=== PATIENT | female | born 1960 | race Caucasian/White ===

== ENCOUNTER 2022-03-28 00:02 | Emergency (ER) | payer MEDICARE ==
[2022-03-28] MEDS: Sodium Chloride 0.9% 10 ML Syringe FLUSH PRN (00:45)
[2022-03-28 01:16] VITALS: BP 170/90; PULSE 85
[2022-03-28 01:16] LABS: ANION GAP 12.6 mmol/L (5-15); CHLORIDE,CL 103 mmol/L (98-107); SODIUM,NA 139 mmol/L (136-145)
[2022-03-28 01:17] LABS: ESTIMATED GFR 74 mL/min (>=60)
[2022-03-28] MEDS: HYDROmorphone 1 MG/ML Syringe ONE (02:10)
[2022-03-28] MEDS: HYDROmorphone 1 MG/ML Syringe IVPUSH ONE (02:12)
[2022-03-28] MEDS: HYDROmorphone 1 MG/ML Syringe IM ONE (02:12)
== END 2022-03-28 02:57 | disposition home or self-care (01) ==
LOC: KA.ED 00:05
DX: M25.561 Pain in right knee (principal); M54.50 Low back pain, unspecified; M25.551 Pain in right hip; E10.9 Type 1 diabetes mellitus without complications; M19.90 Unspecified osteoarthritis, unspecified site; E78.00 Pure hypercholesterolemia, unspecified; I10 Essential (primary) hypertension; E03.9 Hypothyroidism, unspecified; E11.40 Type 2 diabetes mellitus with diabetic neuropathy, unspecified; Z86.73 Personal history of transient ischemic attack (TIA), and cerebral infarction without residual deficits; Z79.02 Long term (current) use of antithrombotics/antiplatelets; Z79.4 Long term (current) use of insulin; Z79.899 Other long term (current) drug therapy
CPT/HCPCS: 36415; 72100; 73560-RT; 80053; 85025; 96374; 99284; 99284-25; J1170; J3490

== ENCOUNTER 2022-05-06 10:58 | Emergency (ER) | payer MEDICARE ==
[2022-05-06] MEDS ORDERED: Sodium Chloride 0.9% 10 ML Syringe FLUSH PRN ×2 (11:06→11:52)
[2022-05-06] MEDS ORDERED: Sodium Chloride 0.9% 1,000 ML IV ONE ×2 (11:39→11:53)
[2022-05-06] MEDS ORDERED: Sodium Chloride 0.9% 1,000 ML ONE (11:40)
[2022-05-06 11:48] LABS: ANION GAP 14.9 mmol/L (5-15); CHLORIDE,CL 99 mmol/L (98-107); SODIUM,NA 134 mmol/L (136-145)
[2022-05-06] MEDS ORDERED: cefTRIAXone 2 GM Vial IVPUSH ONE (11:49)
[2022-05-06 12:17] LABS: ESTIMATED GFR 76 mL/min (>=60)
== END 2022-05-06 14:30 | disposition home or self-care (01) ==
LOC: KA.ED 10:58
DX: E11.621 Type 2 diabetes mellitus with foot ulcer (principal); L97.519 Non-pressure chronic ulcer of other part of right foot with unspecified severity; R00.1 Bradycardia, unspecified; R42 Dizziness and giddiness; E78.00 Pure hypercholesterolemia, unspecified; I10 Essential (primary) hypertension; E03.9 Hypothyroidism, unspecified; Z87.891 Personal history of nicotine dependence; Z86.73 Personal history of transient ischemic attack (TIA), and cerebral infarction without residual deficits; Z86.16 Personal history of COVID-19; Z28.310 Unvaccinated for COVID-19; Z79.02 Long term (current) use of antithrombotics/antiplatelets; Z79.4 Long term (current) use of insulin; Z79.899 Other long term (current) drug therapy; Z20.822 Contact with and (suspected) exposure to COVID-19
CPT/HCPCS: 36415; 70450; 71045; 80053; 81003; 83605; 84484; 85025; 85379; 85730; 93005; 93010; 96361; 96374; 99284; 99285-25; J0696; J7030; U0002

== ENCOUNTER 2022-06-04 21:24 | Inpatient (IN) | payer MEDICARE ==
[2022-06-04] MEDS ORDERED: Sodium Chloride 0.9% 10 ML Syringe FLUSH PRN (21:27)
[2022-06-04] MEDS ORDERED: Sodium Chloride 0.9% 1,000 ML IV ONE (21:31)
[2022-06-04 22:17] LABS: PTT,PARTIAL THROMBOPLSTIN TIME 25.6 SEC (22.8-31.4)
[2022-06-04] MEDS ORDERED: cefTRIAXone 2 GM Vial IVPUSH ONE (22:50)
[2022-06-04 22:59] LABS: BARBITURATE SCREEN,URINE NEGATIVE (NEGATIVE); BENZODIAZEPINES SCREEN,URINE NEGATIVE (NEGATIVE); TCA SCREEN,URINE NEGATIVE (NEGATIVE); THC SCREEN,URINE 50 NG/ML NEGATIVE (NEGATIVE)
[2022-06-04] MEDS ORDERED: Sodium Chloride 0.9% 1,000 ML IV SCH (23:00)
[2022-06-05] MEDS ORDERED: Labetalol 100 MG/20 ML MDV IVPUSH ONE (00:21)
[2022-06-05] MEDS ORDERED: Labetalol 100 MG/20 ML MDV IVPUSH PRN (00:27)
[2022-06-05] MEDS ORDERED: Levothyroxine 75 MCG Tab ONE (04:59)
[2022-06-05] MEDS ORDERED: Levothyroxine 100 MCG Tab ONE (05:00)
[2022-06-05] MEDS: Levothyroxine 75 MCG Tab PO SCH ×2 (05:14→06:29)
[2022-06-05] MEDS: Levothyroxine 100 MCG Tab PO SCH ×2 (05:14→06:29)
[2022-06-05] MEDS: Insuln Aspart Prot/Insulin Aspart 100 Units/ML 3 ML FlexPen SUBCUT SCH ×2 (07:50→13:26)
[2022-06-05 08:11] LABS: ANION GAP 9.1 mmol/L (5-15)
[2022-06-05] MEDS ORDERED: atorvaSTATin 40 MG Tab PO SCH (09:00)
[2022-06-05] MEDS ORDERED: Insulin Glargine,Hum.Rec.Anlog 100 UNIT/ML 3 ML Pen SUBCUT SCH (09:00)
[2022-06-05] MEDS ORDERED: Clopidogrel 75 MG Tab PO SCH (09:00)
[2022-06-05] MEDS ORDERED: DULoxetine 30 MG Cap PO SCH (09:00)
[2022-06-05] MEDS ORDERED: Non-Formulary Medication 1 Each (Bupropion 100 MG Tablet) PO SCH (09:00)
[2022-06-05] MEDS ORDERED: Lisinopril 20 MG Tab PO SCH (10:40)
[2022-06-05] MEDS ORDERED: Hydrochlorothiazide 25 MG Tab PO SCH (10:40)
[2022-06-05] MEDS ORDERED: Propranolol 80 MG Cap.ER PO SCH (10:41)
[2022-06-06] MEDS ORDERED: Hydrochlorothiazide 25 MG Tab PO SCH (09:00)
[2022-06-06] MEDS ORDERED: Lisinopril 20 MG Tab PO SCH (09:00)
[2022-06-06] MEDS ORDERED: Propranolol 80 MG Cap.ER PO SCH (09:00)
== END 2022-06-05 14:30 | disposition home or self-care (01) | DRG 69 ==
LOC: KA.ED 21:24 → KA.MS 23:43
PROVIDERS: ADMIT Physician Assistant Medical; ATTEND Nurse Practitioner Family
DX: G45.9 Transient cerebral ischemic attack, unspecified (principal); R47.81 Slurred speech; I95.9 Hypotension, unspecified; E05.00 Thyrotoxicosis with diffuse goiter without thyrotoxic crisis or storm; F32.A Depression, unspecified; G47.00 Insomnia, unspecified; F41.9 Anxiety disorder, unspecified; R74.02 Elevation of levels of lactic acid dehydrogenase [LDH]; G62.9 Polyneuropathy, unspecified; H54.7 Unspecified visual loss; E78.00 Pure hypercholesterolemia, unspecified; E11.42 Type 2 diabetes mellitus with diabetic polyneuropathy; I10 Essential (primary) hypertension; Z86.73 Personal history of transient ischemic attack (TIA), and cerebral infarction without residual deficits; Z97.3 Presence of spectacles and contact lenses; Z87.81 Personal history of (healed) traumatic fracture; E11.40 Type 2 diabetes mellitus with diabetic neuropathy, unspecified; Z86.16 Personal history of COVID-19; Z90.89 Acquired absence of other organs; Z98.890 Other specified postprocedural states; Z87.891 Personal history of nicotine dependence; E03.9 Hypothyroidism, unspecified; Z79.02 Long term (current) use of antithrombotics/antiplatelets; Z79.890 Hormone replacement therapy; Z79.4 Long term (current) use of insulin; Z79.899 Other long term (current) drug therapy; Z20.822 Contact with and (suspected) exposure to COVID-19
CPT/HCPCS: 36415; 51701; 70450; 71045; 73000-RT; 80053; 80305-QW; 80307; 81001; 82947; 83605; 84484; 85025; 85610; 85730; 87040; 93010; 96360; 96361; 99284; 99285-25; A9270-GY; J0696; J1815-GY; J7030; U0002

== ENCOUNTER 2022-08-27 20:00 | Observation (INO) | payer MEDICARE ==
[2022-08-27] MEDS ORDERED: Sodium Chloride 0.9% 1,000 ML IV SCH (20:35)
[2022-08-27] MEDS ORDERED: Sodium Chloride 0.9% 1,000 ML ONE (20:35)
[2022-08-27 20:45] LABS: ANION GAP 11.1 mmol/L (5-15); CHLORIDE,CL 97 mmol/L (98-107); SODIUM,NA 131 mmol/L (136-145)
[2022-08-27 20:53] LABS: ESTIMATED GFR 100 mL/min (>=60)
[2022-08-27] MEDS ORDERED: Insulin Glargine,Hum.Rec.Anlog 100 UNIT/ML 3 ML Pen SUBCUT ONE (20:59)
[2022-08-27] MEDS ORDERED: Insulin Lispro 100 Unit/ML 3 ML KwikPen SUBCUT ONE (21:11)
[2022-08-27] MEDS ORDERED: Glucagon,Human Recombinant 1 MG Vial IM PRN (21:11)
[2022-08-27] MEDS ORDERED: 50% Dextrose in Water 50 ML Syringe IVPUSH PRN (21:11)
[2022-08-27 21:12] LABS: PTT,PARTIAL THROMBOPLSTIN TIME 24.6 SEC (22.8-31.4)
[2022-08-27] MEDS ORDERED: Insulin Lispro Protamine/Lispro 75-25 100 Units/ML 3 ML KwikPen SUBCUT SCH (23:00)
[2022-08-27] MEDS ORDERED: atorvaSTATin 40 MG Tab PO SCH (23:12)
[2022-08-27] MEDS ORDERED: Clopidogrel 75 MG Tab PO SCH (23:15)
[2022-08-27] MEDS ORDERED: Propranolol 80 MG Cap.ER PO SCH (23:15)
[2022-08-27] MEDS: Gabapentin 300 MG Cap PO SCH (23:41)
[2022-08-28] MEDS: Gabapentin 300 MG Cap PO SCH ×3 (02:47→11:18)
[2022-08-28] MEDS: Insulin Lispro 100 Unit/ML 3 ML KwikPen SUBCUT SCH ×3 (02:53→11:20)
[2022-08-28] MEDS ORDERED: Levothyroxine 75 MCG Tab PO SCH (07:30)
[2022-08-28] MEDS ORDERED: Levothyroxine 100 MCG Tab PO SCH (07:30)
[2022-08-28] MEDS ORDERED: Iopamidol 755 Mg/ML 75 ML Bottle IVPUSH ONE (10:15)
[2022-08-28] MEDS ORDERED: Sodium Chloride 0.9% 50 ML IV SCH (10:15)
== END 2022-08-28 11:50 | disposition home or self-care (01) ==
LOC: KA.ED 20:00 → KA.MS 21:46 → UNDOADMOB 22:27 → KA.MS 22:27 → UNDODISOB 08-28 11:50
PROVIDERS: ADMIT Physician Assistant; ATTEND Nurse Practitioner Family
DX: R29.818 Other symptoms and signs involving the nervous system (principal); E78.00 Pure hypercholesterolemia, unspecified; E11.40 Type 2 diabetes mellitus with diabetic neuropathy, unspecified; F41.9 Anxiety disorder, unspecified; F32.A Depression, unspecified; I10 Essential (primary) hypertension; Z79.899 Other long term (current) drug therapy; Z79.890 Hormone replacement therapy; Z79.4 Long term (current) use of insulin; Z86.16 Personal history of COVID-19; Z87.891 Personal history of nicotine dependence
CPT/HCPCS: 36415; 70450; 80053; 81001; 82947; 83880; 84484; 85025; 85610; 85730; 93010; 99285; A9270-GY; G0378; J1815-GY; J7030

== ENCOUNTER 2022-10-15 15:35 | Observation (INO) | payer MEDICARE ==
[2022-10-15] MEDS ORDERED: Sodium Chloride 0.9% 10 ML Syringe FLUSH PRN ×2 (15:56→16:09)
[2022-10-15] MEDS ORDERED: Sodium Chloride 0.9% 1,000 ML ONE (16:03)
[2022-10-15] MEDS ORDERED: Sodium Chloride 0.9% 1,000 ML IV ONE (16:10)
[2022-10-15 16:52] LABS: ANION GAP 8.1 mmol/L (5-15); CHLORIDE,CL 104 mmol/L (98-107); SODIUM,NA 137 mmol/L (136-145)
[2022-10-15 16:53] LABS: ESTIMATED GFR 78 mL/min (>=60)
[2022-10-15] MEDS ORDERED: Sodium Chloride 0.9% 1,000 ML IV SCH (18:00)
[2022-10-15] MEDS ORDERED: BUPROPION 100 MG PO SCH (21:00)
[2022-10-15] MEDS: Gabapentin 300 MG Cap PO SCH (22:28)
[2022-10-15] MEDS: busPIRone 10 MG Tab PO SCH (22:28)
[2022-10-15] MEDS: Insulin Glargine,Hum.Rec.Anlog 100 UNIT/ML 3 ML Pen SUBCUT SCH (22:29)
[2022-10-16] MEDS: Levothyroxine 100 MCG Tab PO SCH ×2 (06:01→06:30)
[2022-10-16] MEDS: Gabapentin 300 MG Cap PO SCH ×2 (06:02→09:44)
[2022-10-16 07:30] LABS: ANION GAP 11.3 mmol/L (5-15)
[2022-10-16] MEDS ORDERED: Insuln Aspart Prot/Insulin Aspart 100 Units/ML 3 ML FlexPen SUBCUT SCH (08:00)
[2022-10-16] MEDS: Insulin Glargine,Hum.Rec.Anlog 100 UNIT/ML 3 ML Pen SUBCUT SCH (08:31)
[2022-10-16] MEDS: busPIRone 10 MG Tab PO SCH (08:33)
[2022-10-16] MEDS ORDERED: atorvaSTATin 40 MG Tab PO SCH (09:00)
[2022-10-16] MEDS ORDERED: Clopidogrel 75 MG Tab PO SCH (09:00)
[2022-10-16] MEDS ORDERED: Propranolol 80 MG Cap.ER PO SCH (09:00)
[2022-10-16] MEDS ORDERED: DULoxetine 30 MG Cap PO SCH (09:00)
[2022-10-16] MEDS ORDERED: Hydrochlorothiazide 25 MG Tab PO SCH (09:00)
== END 2022-10-16 11:30 | disposition home or self-care (01) ==
LOC: KA.ED 15:35 → KA.MS 17:58
PROVIDERS: ADMIT Physician Assistant Medical; ATTEND Nurse Practitioner Family
DX: I95.9 Hypotension, unspecified (principal); E11.65 Type 2 diabetes mellitus with hyperglycemia; E89.0 Postprocedural hypothyroidism; F32.A Depression, unspecified; G47.00 Insomnia, unspecified; E11.42 Type 2 diabetes mellitus with diabetic polyneuropathy; B35.1 Tinea unguium; L97.519 Non-pressure chronic ulcer of other part of right foot with unspecified severity; I10 Essential (primary) hypertension; E78.00 Pure hypercholesterolemia, unspecified; F41.9 Anxiety disorder, unspecified; Z86.73 Personal history of transient ischemic attack (TIA), and cerebral infarction without residual deficits; Z79.899 Other long term (current) drug therapy; Z79.4 Long term (current) use of insulin; Z79.890 Hormone replacement therapy; Z86.16 Personal history of COVID-19; Z98.890 Other specified postprocedural states
CPT/HCPCS: 36415; 70450; 71045; 80053; 81001; 82947; 83605; 84484; 85025; 87040; 93005; 93010; 96360; 99284; 99285-25; A9270-GY; G0378; J7030